=== PATIENT | female | born 1960 | race Caucasian/White ===

== ENCOUNTER → 2017-05-20 | Outpatient (CLI) | payer MEDICARE ==
--- NOTE | 2017-05-20 09:25 | CT ---
EXAMINATION TYPE: CT shoulder LT wo con DATE OF EXAM: 05/20/2017 COMPARISON: Plain films of the shoulder dated 10/23/2016. HISTORY: Osteoarthritis TECHNIQUE: Helical acquisition through the region of the left shoulder was obtained without intraveno us contrast. The data was reformatted in axial, coronal and sagittal projections. Three-dimensional v olume rendered imaging was also performed at the CT scanner. CT DLP: 257.4 mGycm Automated exposure control for dose reduction was used. FINDINGS: Visualized portions of the lungs are clear. There is some shotty axillary adenopathy. No pathologically enlarged lymph nodes are seen. Musculature about the shoulder is unremarkable. There are remodeling changes in the glenohumeral joint. There are hypertrophic and pseudocystic pritchard es in the acromioclavicular joint. No acute osseous lesion is seen. There is no complete rotator cuff tear. I cannot exclude other rotator cuff pathology. IMPRESSION: 1. FINDINGS COMPATIBLE WITH OSTEOARTHRITIS. 2. HYPERTROPHIC CHANGES, LEFT AC JOINT. 3. I DO NOT SEE EVIDENCE FOR ROTATOR CUFF DISEASE. FOR MORE DETAILED ASSESSMENT OF THE ROTATOR CUFF M RI OF THE SHOULDER WOULD BE RECOMMENDED.
== END | disposition home or self-care (01) ==
LOC: RADCTMAIN 08:00
PROVIDERS: ATTEND Orthopaedic Surgery
DX: M25.812 Other specified joint disorders, left shoulder (principal)

== ENCOUNTER → 2017-11-03 | Outpatient (CLI) | payer MEDICARE ==
--- NOTE | 2017-11-04 09:48 | MM ---
Reason for exam: screening (asymptomatic). Last mammogram was performed 1 year and 1 month ago. History: Patient is postmenopausal and history of other cancer. Physical Findings: A clinical breast exam by your physician is recommended on an annual basis and results should be correlated with mammographic findings. MG 3D Screening Mammo W/Cad Bilateral CC and MLO view(s) were taken. Prior study comparison: October 17, 2016, mammogram, performed at [facility]. October 12, 2015, mammogram, performed at [facility]. There are scattered fibroglandular densities. No significant changes when compared with prior studies. ASSESSMENT: Benign, BI-RAD 2 RECOMMENDATION: Routine screening mammogram of both breasts in 1 year.
== END | disposition home or self-care (01) ==
LOC: RADMAMWWP 11:07
PROVIDERS: ATTEND Internal Medicine
DX: Z12.31 Encounter for screening mammogram for malignant neoplasm of breast (principal)
CPT/HCPCS: 77063; 77067

== ENCOUNTER → 2018-11-24 | Outpatient (CLI) | payer MEDICARE ==
--- NOTE | 2018-11-28 13:43 | MM ---
Reason for exam: screening (asymptomatic). Last mammogram was performed 1 year and 1 month ago. History: Patient is postmenopausal and history of other cancer. MG 3D Screening Mammo W/Cad Bilateral CC and MLO view(s) were taken. Prior study comparison: November 03, 2017, bilateral MG 3d screening mammo w/cad. October 17, 2016, mammogram, performed at [facility]. The breast tissue is heterogeneously dense. This may lower the sensitivity of mammography. No suspicious abnormality. No significant changes when compared with prior studies. ASSESSMENT: Negative, BI-RAD 1 RECOMMENDATION: Routine screening mammogram of both breasts in 1 year.
== END | disposition home or self-care (01) ==
LOC: RADMAMWWP 07:51
PROVIDERS: ATTEND Internal Medicine
DX: Z12.31 Encounter for screening mammogram for malignant neoplasm of breast (principal)
CPT/HCPCS: 77063; 77067

== ENCOUNTER → 2019-05-11 | Outpatient (CLI) | payer MEDICARE ==
--- NOTE | 2019-05-11 13:46 | MR ---
EXAMINATION TYPE: MR lumbar spine wo con DATE OF EXAM: 05/11/2019 COMPARISON: 10/23/2016 HISTORY: Lumbar pain TECHNIQUE: Multiplanar, multisequence images of the lumbar spine were acquired. FINDINGS: There is a very minimal dextroscoliosis of the thoracolumbar junction on the localizer imag es. The lumbar spine vertebral bodies maintain normal vertebral body heights and alignment. Bone sophia ow signal is within normal limits. Schmorl's node is seen in the inferior endplate of T12. Conus medu llaris is unremarkable terminating at L2. Altered level disc desiccation. L1-L2: No significant disc disease, spinal canal stenosis nor neural foraminal narrowing. L2-L3: There is a right eccentric disc bulge that has occurred in the interim creating mild right pedro ral foraminal narrowing. Left neural foramen and spinal canal are patent. L3-L4: There is a small broad-based disc bulge and mild facet arthropathy without spinal canal stenos is or significant neural foraminal narrowing. L4-L5: There is a broad-based disc bulge and facet arthropathy with left lateral annular tear. Disc b ulge is left eccentric with no significant neural foraminal narrowing or spinal canal stenosis. L5-S1: There is a broad-based disc bulge and facet arthropathy without spinal canal stenosis or neura l foraminal narrowing. There is a left paracentral annular tear noted. This was seen on the prior. IMPRESSION: Mildly progressed multilevel degenerative disc disease in comparison to the prior of 10/27/2016 with left eccentric disc bulge at L4-L5, right eccentric disc bulge at L2-L3, and broad-based disc bulges from L2 through S1. No spinal canal stenosis. Mild right neural foraminal narrowing at L2-L3 is now s een. Multilevel annular tears.
== END | disposition home or self-care (01) ==
LOC: RADMRIMAIN 12:02
PROVIDERS: ATTEND Psychiatry & Neurology Neurology
DX: M48.061 Spinal stenosis, lumbar region without neurogenic claudication (principal); M51.26 Other intervertebral disc displacement, lumbar region; M51.37 Other intervertebral disc degeneration, lumbosacral region; M51.86 Other intervertebral disc disorders, lumbar region; M51.87 Other intervertebral disc disorders, lumbosacral region
CPT/HCPCS: 72148

== ENCOUNTER → 2019-07-27 | Outpatient (CLI) | payer MEDICARE ==
--- NOTE | 2019-07-27 09:16 | US ---
EXAMINATION TYPE: US abdomen complete DATE OF EXAM: 07/27/2019 COMPARISON: NONE CLINICAL HISTORY: R10.11 Right upper quadrant pain. Intermittent epigastric and RUQ pain x 5 months, 1 episode of nausea EXAM MEASUREMENTS: Liver Length: 16.4 cm Gallbladder Wall: 0.2 cm CBD: 0.5 cm Spleen: 10.1 cm Right Kidney: 10.5 x 4.0 x 4.1 cm Left Kidney: 10.6 x 5.3 x 4.9 cm Pancreas: visualized portions wnl, limited by overlying midline bowel gas Liver: wnl Gallbladder: wnl Evidence for sonographic Pop's sign: yes CBD: visualized portions wnl, limited by overlying bowel gas Spleen: wnl Right Kidney: wnl Left Kidney: wnl Upper IVC: wnl Abd Aorta: wnl There is no ascites. IMPRESSION: Exam somewhat limited. No significant abnormality evident.
== END ==
LOC: RADUSWWP 06:58
PROVIDERS: ATTEND Internal Medicine
DX: R10.11 Right upper quadrant pain (principal)
CPT/HCPCS: 76700

== ENCOUNTER → 2019-08-02 | Outpatient (CLI) | payer MEDICARE ==
--- NOTE | 2019-08-03 07:59 | NM ---
EXAMINATION TYPE: NM hepatobiliary w EF DATE OF EXAM: 08/02/2019 COMPARISON: NONE HISTORY: R10.11 right upper quadrant abdominal pain TECHNIQUE: After the intravenous administration of 4.5 mCi Tc 99m Mebrofenin hepatobiliary scintigrap hy is performed. Immediate images post injection. FINDINGS: There is satisfactory initial accumulation of tracer by the liver. The gallbladder is visualized wit hin 28 minutes. The small bowel activity is noted within 20 minutes. At one hour 8 ounces of oral e nsure plus is given to mimic CCK and gallbladder ejection fraction is calculated at 97%. IMPRESSION: Increased ejection fraction suggests hypercontractile state.
== END | disposition home or self-care (01) ==
LOC: RADNMMAIN 14:49
PROVIDERS: ATTEND Internal Medicine
DX: R93.5 Abnormal findings on diagnostic imaging of other abdominal regions, including retroperitoneum (principal); R10.11 Right upper quadrant pain
CPT/HCPCS: 78226; A9537

== ENCOUNTER → 2019-12-05 | Outpatient (CLI) | payer MEDICARE ==
--- NOTE | 2019-12-06 11:16 | MM ---
Reason for exam: screening (asymptomatic). Last mammogram was performed 1 year ago. History: Patient is postmenopausal and history of other cancer. Physical Findings: A clinical breast exam by your physician is recommended on an annual basis and results should be correlated with mammographic findings. MG 3D Screening Mammo W/Cad Bilateral CC and MLO view(s) were taken. Prior study comparison: November 24, 2018, bilateral MG 3d screening mammo w/cad. November 03, 2017, bilateral MG 3d screening mammo w/cad. The breast tissue is heterogeneously dense. This may lower the sensitivity of mammography. There is no discrete abnormality. ASSESSMENT: Negative, BI-RAD 1 RECOMMENDATION: Routine screening mammogram of both breasts in 1 year.
== END | disposition home or self-care (01) ==
LOC: RADMAMWWP 09:30
PROVIDERS: ATTEND Family Medicine
DX: Z12.31 Encounter for screening mammogram for malignant neoplasm of breast (principal); Z80.3 Family history of malignant neoplasm of breast
CPT/HCPCS: 77063; 77067

== ENCOUNTER → 2019-12-16 | Outpatient (CLI) | payer MEDICARE ==
--- NOTE | 2019-12-16 11:47 | CTL ---
EXAMINATION TYPE: CT Low Dose Lung DATE OF EXAM ORDERED: 12/16/2019 HISTORY: 15 cigarettes a day smoker. Lung cancer screening CT DLP: 112.[address] CTDI: 3.6 mGy Automated exposure control for dose reduction was used. SCREENING VISIT: Initial COMPARISON: None TECHNIQUE: Low dose computed tomography scan was performed through the chest at 1 mm thick sections a nd reconstructed images in the coronal plane at [address] DIAGNOSTIC QUALITY: Satisfactory FINDINGS: LUNG NODULES: None. LUNGS: COPD: Severity: Minimal, chronic bronchitis. Fibrosis: Severity: None Lymph nodes: No enlarged mediastinal lymph nodes Other findings: None RIGHT PLEURAL SPACE: Effusion: None Calcification: None Thickening: None Pneumothorax: None LEFT PLEURAL SPACE: Effusion: None Calcification: None Thickening: None Pneumothorax: None HEART: Heart Size: Normal Coronary calcification: No significant Pericardial effusion: None OTHER FINDINGS: Upper abdomen: Normal Bony thorax: Normal Supraclavicular region: Normal Other: Ascending thoracic aorta at the level the main pulmonary artery measures 3.0 cm. The main pul monary artery at the bifurcation measures 2.2 cm. IMPRESSION: 1. No suspicious changes screening CT chest FOLLOW UP CT CHEST RECOMMENDATION: 1. Follow-up low dose screening CT chest 1 year. 2[address] Smoking sensation. CT LUNG RAD: 1
== END | disposition home or self-care (01) ==
LOC: RADCTMAIN 07:46
PROVIDERS: ATTEND Family Medicine
DX: Z12.2 Encounter for screening for malignant neoplasm of respiratory organs (principal); F17.210 Nicotine dependence, cigarettes, uncomplicated

== ENCOUNTER → 2020-11-29 | Outpatient (CLI) | payer MEDICARE ==
[2020-11-29 10:17] LABS: Basophils # (A) 0.1 k/uL (0-0.2); Basophils % (A) 1 %; Eosinophils # (A) 0.2 k/uL (0-0.7); Eosinophils % (A) 3 %; HCT 42.9 % (34.0-46.0); HGB 14.3 gm/dL (11.4-16.0); Lymphocytes # (A) 2.3 k/uL (1.0-4.8); Lymphocytes % (A) 35 %; MCH 28.2 pg (25.0-35.0); MCHC 33.4 g/dL (31.0-37.0); MCV 84.4 fL (80.0-100.0); Mean Platelet Volume 6.5; Monocytes # (A) 0.3 k/uL (0-1.0); Monocytes % (A) 5 %; Neutrophils # (A) 3.6 k/uL (1.3-7.7); Neutrophils % (A) 54 %; Platelet Count 284 k/uL (150-450); RBC 5.08 m/uL (3.80-5.40); RDW 12.6 % (11.5-15.5); WBC 6.7 k/uL (3.8-10.6)
[2020-11-29 10:37] LABS: ALT 33 U/L (4-34); AST 36 U/L (14-36); African American GFR (CKD) >90 (>60 ml/min/1.73 sqM); Albumin 4.3 g/dL (3.5-5.0); Alkaline Phosphatase 40 U/L (38-126); Anion Gap 4 mmol/L; Blood Urea Nitrogen 11 mg/dL (7-17); Calcium 9.2 mg/dL (8.4-10.2); Carbon Dioxide 31 mmol/L (22-30); Chloride 104 mmol/L (98-107); Glucose 105 mg/dL (74-99); Non-African American GFR(CKD) >90 (>60 ml/min/1.73 sqM); Potassium 4.6 mmol/L (3.5-5.1); Sodium 139 mmol/L (137-145); Total Bilirubin 0.5 mg/dL (0.2-1.3); Total Protein 6.7 g/dL (6.3-8.2)
--- NOTE | 2020-11-29 13:36 | MR ---
EXAMINATION TYPE: MR brain wo/w con DATE OF EXAM: 11/29/2020 COMPARISON: None available HISTORY: Headaches, unusual duration. Muscle spasms TECHNIQUE: Multiplanar, multisequence images of the brain and brainstem is performed without and with IV contras t, utilizing 7 mL intravenous Gadavist . FINDINGS: Diffusion weighted images demonstrate no evidence of a recent infarct or other diffusion ab normality. There is no extra-axial fluid collection. Some periventricular hyperintensities are pres ent on inversion recovery T2-weighted sequences, 2 dominant lesions are present, largest in the left frontal deep white matter measures 8 mm on axial image 23, sagittal image #9, right frontal white mat ter hyperintensity measures 5 mm on axial image #19, sagittal image #16. Approximately 3-5 lesions pr esent. The ventricular system and cisternal spaces are normal in size and appearance. The brain volu me is age appropriate. Midline structures demonstrate normal morphology. The craniocervical junction appears within normal limits. Post contrast images demonstrate no abnormal enhancement. The dural venous sinuses appear pa tent. The visualized sinuses are focal mucoperiosteal thickening in the maxillary sinus, ethmoid air cells and the globes are intact. IMPRESSION: Nonspecific white matter demyelination. Mild sinus disease.
== END | disposition home or self-care (01) ==
LOC: RADMRIMAIN 09:00
PROVIDERS: ATTEND Psychiatry & Neurology Neurology
DX: R90.82 White matter disease, unspecified (principal); E55.9 Vitamin D deficiency, unspecified; Z51.81 Encounter for therapeutic drug level monitoring
CPT/HCPCS: 80053; 85025; 82306; 70553; 36415; A9585

== ENCOUNTER → 2020-12-14 | Outpatient (CLI) | payer MEDICARE ==
--- NOTE | 2020-12-18 12:24 | MM ---
Reason for exam: screening (asymptomatic). Last mammogram was performed 1 year ago. History: Patient is postmenopausal and history of other cancer. Took hormonal contraceptives for 10 years. Took estrogen for 1 year. Physical Findings: A clinical breast exam by your physician is recommended on an annual basis and results should be correlated with mammographic findings. MG 3D Screening Mammo W/Cad Bilateral CC and MLO view(s) were taken. Prior study comparison: December 05, 2019, bilateral MG 3d screening mammo w/cad. November 24, 2018, bilateral MG 3d screening mammo w/cad. There are scattered fibroglandular densities. No significant changes when compared with prior studies. ASSESSMENT: Benign, BI-RAD 2 RECOMMENDATION: Routine screening mammogram of both breasts in 1 year.
== END | disposition home or self-care (01) ==
LOC: RADMAMWWP 07:56
PROVIDERS: ATTEND Family Medicine
DX: Z12.31 Encounter for screening mammogram for malignant neoplasm of breast (principal)
CPT/HCPCS: 77063; 77067

== ENCOUNTER → 2020-12-14 | Outpatient (CLI) | payer MEDICARE ==
--- NOTE | 2020-12-14 09:42 | CTL ---
EXAMINATION TYPE: CT Low Dose Lung DATE OF EXAM ORDERED: 12/14/2020 HISTORY: Routine dependence. Lung cancer screening CT DLP: 104.[address] CTDI: 3.3 mGy Automated exposure control for dose reduction was used. SCREENING VISIT: Follow-up COMPARISON: 12/16/2019 TECHNIQUE: Low dose computed tomography scan was performed through the chest at 1 mm thick sections a nd reconstructed images in the coronal plane at [address] DIAGNOSTIC QUALITY: Satisfactory FINDINGS: LUNG NODULES: None.. LUNGS: COPD: Severity: None Fibrosis: Severity: None Lymph nodes: None Other findings: None RIGHT PLEURAL SPACE: Effusion: None Calcification: None Thickening: None Pneumothorax: None LEFT PLEURAL SPACE: Effusion: None Calcification: None Thickening: None Pneumothorax: None HEART: Heart Size: Normal Coronary calcification: None Pericardial effusion: None OTHER FINDINGS: Upper abdomen: Normal Bony thorax: Normal Supraclavicular region: Normal Other: Ascending thoracic aorta at the level the main pulmonary artery measures 3.0 cm. The main pul monary artery at the bifurcation measures 2.7 cm. IMPRESSION: 1. No suspicious changes screening low-dose CT chest FOLLOW UP CT CHEST RECOMMENDATION: 1. Follow-up low-dose CT chest 1 year 2[address] Smoking cessation. CT LUNG RAD: 1
== END | disposition home or self-care (01) ==
LOC: RADCTMAIN 08:19
PROVIDERS: ATTEND Family Medicine
DX: Z12.2 Encounter for screening for malignant neoplasm of respiratory organs (principal); F17.210 Nicotine dependence, cigarettes, uncomplicated
CPT/HCPCS: 71271

== ENCOUNTER → 2020-12-24 | Outpatient (CLI) | payer MEDICARE ==
--- NOTE | 2020-12-26 08:12 | CT ---
EXAMINATION TYPE: CT pelvis w con DATE OF EXAM: 12/24/2020 COMPARISON: NONE HISTORY: 59-year-old female N83.292, ovarian cyst, pelvic pain and vaginal bleeding TECHNIQUE: Contiguous axial scanning of the pelvis following administration of 100 ml Isovue 300 IV c ontrast. Delayed images through the bladder and coronal/sagittal reconstructions performed. CT DLP: 547.6 mGycm Automated exposure control for dose reduction was used. FINDINGS: Moderate scattered stool is noted. Normal appendix. In the visualized colon, no pericolic inflammator y change. No lower abdominal/retroperitoneal or pelvic lymphadenopathy identified. No abnormal fluid collection seen in the pelvis. Scattered pelvic lymph nodes. Uterus surgically absent. Both ovaries are visualized. There is either a mildly complex, septated cyst versus 2 adjacent cysts with aggregate dimension of 3 .8 cm AP by 2.3 cm wide by 2.3 cm craniocaudal, refer to axial image 25 and sagittal image 40. Bones: Mild degenerative spurring of both hips. Facet arthropathy lower lumbar spine. IMPRESSION: 1. EITHER A MILDLY COMPLEX SEPTATED CYST VERSUS 2 ADJACENT CYSTS WITHIN THE LEFT OVARY MEASURING UP T O 3.8 X 2.3 X 2.3 CM. GIVEN POSTMENOPAUSAL STATUS, RECOMMEND FOLLOW-UP ULTRASOUND IN THE 3-6 MONTHS T O REASSESS, FURTHER CHARACTERIZE, AND TO DETERMINE SUBSEQUENT FOLLOW-UP RECOMMENDATIONS. A CYSTIC EPI THELIAL OVARIAN NEOPLASM IS NOT EXCLUDED AT THIS TIME. 2. STATUS POST HYSTERECTOMY. 3. MODERATE STOOL BURDEN.
== END | disposition home or self-care (01) ==
LOC: RADCTMAIN 13:37
PROVIDERS: ATTEND Family Medicine
DX: Z78.0 Asymptomatic menopausal state (principal); Z98.890 Other specified postprocedural states; N83.292 Other ovarian cyst, left side
CPT/HCPCS: 72193; Q9967

== ENCOUNTER → 2021-02-14 | Outpatient (CLI) | payer MEDICARE ==
--- NOTE | 2021-02-14 10:46 | MR ---
EXAMINATION TYPE: MR cervical spine wo con DATE OF EXAM: 02/14/2021 COMPARISON: Cervical spine MRI 06/16/2016 HISTORY: Neck pain, bilateral arm numbness TECHNIQUE: Multiplanar, multisequence images of the cervical spine were acquired. C2-C3: No evidence for degenerative disc disease. No disc bulge/herniation or protrusion. No Canal stenosis. Foramina are patent bilaterally. C3-C4: There is some left-sided foraminal encroachment due to uncovertebral joint hypertrophy, director digital marketing ior extension of broad-based disc bulge, endplate disc complex causes minimal anterior mass effect on the thecal sac, no significant stenosis C4-C5: Posterior extension endplate disc complex causes mild anterior mass effect on the thecal sac, only mild stenosis, there is foraminal encroachment right greater than left due to uncovertebral join t hypertrophy, facet arthropathy. C5-C6: Posterior extension of endplate disc complex causes mild anterior mass effect thecal sac, mild central stenosis. There is some left-sided foraminal encroachment due to uncovertebral joint hypertr ophy and facet arthropathy change. C6-C7: Posterior extension endplate disc complex somewhat eccentric towards the left, there is anteri or mass effect on the thecal sac. Some mild right-sided foraminal encroachment, no significant spinal stenosis. C7-T1: Small posterior disc herniation causes minimal anterior mass effect on the thecal sac. No sign ificant spinal stenosis or foraminal encroachment. Cervical segments are intact. There is normal alignment. Cervical spinal cord is of normal signal. Craniovertebral junction relationships are within normal limits. Cervical vertebral bodies show pre served height, there is multilevel spondylosis, endplate discogenic marrow signal change, loss of dis c height and signal especially at C3-4, C4-5 and C5-6 and C6-7. There is a spinal curvature in the th oracic and cervical spine. IMPRESSION: Two-level degenerative disc disease, foraminal encroachment, findings similar to prior exam. Spinal c urvature.
== END | disposition home or self-care (01) ==
LOC: RADMRIMAIN 08:32
PROVIDERS: ATTEND Psychiatry & Neurology Neurology
DX: M50.30 Other cervical disc degeneration, unspecified cervical region (principal)
CPT/HCPCS: 72141

== ENCOUNTER → 2022-01-13 | Outpatient (CLI) | payer MEDICARE ==
--- NOTE | 2022-01-14 19:40 | BD ---
EXAMINATION TYPE: Axial Bone Density DATE OF EXAM: 01/13/2022 COMPARISON: 06/24/2005 CLINICAL HISTORY: Postmenopausal screening Height: 60 IN Weight: 156 LBS FRAX RISK QUESTIONS: Secondary Osteoporosis: 3. Menopause before 45: PARTIAL HYST AGE 26 Current Tobacco Use: YES RISK FACTORS HISTORY OF: History of Wrist Fracture: LT WRIST AGE 32 Active: YES Postmenopausal woman: PARTIAL HYST AGE 26 MEDICATIONS: Osteoporosis Medications: YES Which medication: Fosamax How Lon YEARS Additional Medications: CALCIUM, VIT D, FOSAMAX, ATENOLOL, AMLODIPINE, MS CONTIN, PERCOCET, ASPIRIN, MAGNESIUM, ZINC, VIT C, TERMERIC, ELITE OMEGA, RED YEAST RICE, EXAM MEASUREMENTS: Bone mineral densitometry was performed using the [employer] System. Bone mineral density as measured about the Lumbar spine is: ----- L1-L4(G/cm2): 1.218 T Score Values are as follows: ----- L2: 0.2 ----- L3: 1.2 ----- L4: 0.1 ----- L1-L4: 0.3 Bone mineral density has: Increased 11.7% since study of: 06/24/2005 Bone mineral density about the R hip (g/cm2): 0.945 Bone mineral density about the L hip (g/cm2): 1.003 T Score values are as follows: -----R Neck: -0.7 -----L Neck: -0.2 -----R Total: -0.6 -----L Total: 0.1 Bone mineral density has: Increased 9.9% since study of: 06/24/2005 IMPRESSION: Normal (Values between +1 and -1 indicate normal bone mass). Consider repeating this study in 5 year s or sooner if there is some new clinical indication. NOTE: T-SCORE=SD OF THE YOUNG ADULT MEAN.
== END | disposition home or self-care (01) ==
LOC: RADBDWWP 16:06
PROVIDERS: ATTEND Family Medicine
DX: Z78.0 Asymptomatic menopausal state (principal)
CPT/HCPCS: 77080

== ENCOUNTER → 2022-04-17 | Outpatient (CLI) | payer MEDICARE ==
--- NOTE | 2022-04-18 09:02 | CA ---
Transthoracic Echo Report Name: Madeline Winn Age: 61 Gender: F : 1960 Exam Date: 04/17/2022 14:44 Exam Location: [facility] Ht (in): 60 Wt (lb): 160 Ordering Physician: Tayo Pandey MD Attending/Referring Phys: Marie [facility] Panel Assembler Veena Gilmore RDCS Procedure CPT: Indications: R94.31 Cardiac Hx: Technical Quality: Fair Contrast 1: Total Dose (mL): Contrast 2: Total Dose (mL): MEASUREMENTS (Male / Female) Normal Values 2D ECHO LV Diastolic Diameter PLAX 4.1 cm 4.2 - 5.9 / 3.9 - 5.3 cm LV Systolic Diameter PLAX 2.0 cm IVS Diastolic Thickness 1.1 cm 0.6 - 1.0 / 0.6 - 0.9 cm LVPW Diastolic Thickness 1.3 cm 0.6 - 1.0 / 0.6 - 0.9 cm LV Relative Wall Thickness 0.6 RV Internal Dim ED PLAX 2.9 cm M-MODE Aortic Root Diameter MM 2.6 cm LA Systolic Diameter MM 3.5 cm LA Ao Ratio MM 1.4 AV Cusp Separation MM 2.0 cm DOPPLER AV Peak Velocity 171.8 cm/s AV Peak Gradient 11.8 mmHg AV Mean Velocity 117.4 cm/s AV Mean Gradient 5.7 mmHg AV Velocity Time Integral 42.8 cm LVOT Peak Velocity 153.9 cm/s LVOT Peak Gradient 9.5 mmHg MV Area PHT 4.3 cm??? Mitral E Point Velocity 69.1 cm/s Mitral A Point Velocity 62.1 cm/s Mitral E to A Ratio 1.1 MV Deceleration Time 175.6 ms MV E' Velocity 10.2 cm/s Mitral E to MV E' Ratio 6.8 TR Peak Velocity 251.1 cm/s TR Peak Gradient 25.2 mmHg Right Ventricular Systolic Press 29.1 mmHg FINDINGS Left Ventricle Mildly increased left ventricular wall thickness. Normal left ventricular systolic function with no obvious regional wall motion abnormalities. Normal left ventricular diastolic filling pattern. Left ventricular ejection fraction is estimated at 55-60 %. Right Ventricle Normal right ventricular size and function. Right ventricular systolic pressure within normal limits. Right Atrium Normal right atrial size. Left Atrium Normal left atrial size. No evidence for an atrial septal defect. Mitral Valve Structurally normal mitral valve. Mild mitral regurgitation. Aortic Valve No aortic valve stenosis or regurgitation. Tricuspid Valve Structurally normal tricuspid valve. Mild tricuspid regurgitation. Pulmonic Valve Trace pulmonic regurgitation. Pericardium No pericardial effusion. Aorta Normal size aortic root and proximal ascending aorta. CONCLUSIONS Normal LV size and systolic function. Mild mitral and tricuspid insufficiency. No pericardial effusion Previewed by: Dr. Raven Cullen MD (Electronically Signed) Final Date: 18 April 2022 09:01
== END | disposition home or self-care (01) ==
LOC: RADECHMAIN 14:36
PROVIDERS: ATTEND Family Medicine
DX: I08.1 Rheumatic disorders of both mitral and tricuspid valves (principal)
CPT/HCPCS: 93306

== ENCOUNTER → 2022-05-03 | Outpatient (CLI) | payer MEDICARE ==
--- NOTE | 2022-05-03 10:48 | MR ---
EXAMINATION TYPE: MR lumbar spine wo con DATE OF EXAM: 05/03/2022 COMPARISON: MR lumbar spine 05/11/2019 and 10/23/2016 HISTORY: LOW BACK PAIN, DISTURBANCES OF SKIN SENSATION TECHNIQUE: Multiplanar, multisequence images of the lumbar spine were acquired without IV contrast. FINDINGS: Normal and stable alignment of the visualized spine the cord signal is within normal limits. Conus me dullaris terminates at L1-L2. Minimal endplate changes are seen throughout the spine most pronounced in lower thoracic spine which are not significantly different than prior in 2019. No significant disc desiccation is identified. L1-L2: Normal disc appearance without desiccation. No herniation, protrusion or disc bulging. No ca nal stenosis is present. Foramina are patent bilaterally. L2-L3: Normal disc appearance without desiccation. No herniation, protrusion or disc bulging. No ca nal stenosis is present. Foramina are patent bilaterally. L3-L4: Normal disc appearance without desiccation. No herniation, protrusion or disc bulging. No ca nal stenosis is present. Foramina are patent bilaterally. L4-L5: Facet joint arthropathy and mild disc bulging result in mild left neural foraminal stenosis. S radha canal is patent. L5-S1: Normal disc appearance without desiccation. No herniation, protrusion or disc bulging. No ca nal stenosis is present. Foramina are patent bilaterally. Lumbar segments are intact. No paraspinal masses are identified. Conus medullaris has a normal appe arance. IMPRESSION: 1. Overall no significant change from prior in 2019 without evidence of significant spinal canal pedro ral foraminal stenosis. No definitive evidence of disc herniation identified. 2. Multilevel disc degeneration with associated osteoarthritic changes are not significantly changed there is mild left neural for L5 neural foraminal stenosis secondary to facet joint arthropathy.
== END | disposition home or self-care (01) ==
LOC: RADMRIMAIN 08:23
DX: M51.26 Other intervertebral disc displacement, lumbar region (principal); M47.816 Spondylosis without myelopathy or radiculopathy, lumbar region; M48.061 Spinal stenosis, lumbar region without neurogenic claudication; M99.73 Connective tissue and disc stenosis of intervertebral foramina of lumbar region
CPT/HCPCS: 72148

== ENCOUNTER → 2024-04-19 | Outpatient (CLI) | payer MEDICARE | END | disposition home or self-care (01) | LOC: LABWHC1 10:37 | PROVIDERS: ATTEND Family Medicine | DX: Z53.9 Procedure and treatment not carried out, unspecified reason (principal) ==

== ENCOUNTER → 2024-04-20 | Outpatient (CLI) | payer MEDICARE ==
[2024-04-20 15:41] LABS: Calcium 9.3 mg/dL (8.7-10.3); Iron 115 UG/DL (50-170); Magnesium 2.2 mg/dL (1.5-2.4); Rheumatoid Factor, Qnt <15 IU/mL (0-15); T4, Free (Free Thyroxine) 1.27 ng/dL (0.80-1.80); Uric Acid 3.7 mg/dL (2.9-7.7)
[2024-04-20 18:54] LABS: DHEA Sulfate 83.6 UG/DL (39.0-800.0)
[2024-04-22 11:35] LABS: Vit B1(Thiamine) 60 ug/L (38-122)
[2024-04-27 07:07] LABS: Nicotinamide 21 ng/mL; Nicotinic Acid None Detected; Nicotinuric Acid None Detected
== END | disposition home or self-care (01) ==
LOC: LABWHC1 09:04
PROVIDERS: ATTEND Family Medicine
DX: G89.4 Chronic pain syndrome (principal); K59.00 Constipation, unspecified; F34.1 Dysthymic disorder; M81.0 Age-related osteoporosis without current pathological fracture; M79.10 Myalgia, unspecified site; R53.83 Other fatigue; Z77.29 Contact with and (suspected) exposure to other hazardous substances; Z77.118 Contact with and (suspected) exposure to other environmental pollution
CPT/HCPCS: 36415; 82175; 82310; 82533; 82627; 83540; 83655; 83735; 83825; 84207; 84425; 84439; 84481; 84550; 84591; 86038; 86140; 86431

== ENCOUNTER → 2024-10-06 | Outpatient (CLI) | payer MEDICARE ==
--- NOTE | 2024-10-06 13:22 | US ---
EXAMINATION TYPE: US mass soft tissue chest/back DATE OF EXAM: 10/06/2024 COMPARISON: NONE CLINICAL INDICATION: Female, 63 years old with history of M79.89 OTHER SPECIFIED SOFT TISSUE DISORDER S; right side lump TECHNIQUE: Multiple grayscale ultrasound images of the right side at patient's palpable region of ab normality were obtained. FINDINGS/IMPRESSION: Scanned area of concern with no abnormalities seen. No distinct masses or fluid collections identified. [facility], , 10/06/2024 1:20 PM
== END | disposition home or self-care (01) ==
LOC: RADUSWWP 12:17
PROVIDERS: ATTEND Physical Medicine & Rehabilitation Pain Medicine
DX: R07.81 Pleurodynia (principal); M79.89 Other specified soft tissue disorders

== ENCOUNTER → 2025-02-03 | Outpatient (CLI) | payer MEDICARE ==
--- NOTE | 2025-02-03 07:56 | MM ---
Reason for Exam: Screening (asymptomatic). Last mammogram was performed 1 year(s) and 1 month(s) ago. Patient History: Menarche at age 12. First Full-Term at age 21. Hysterectomy at age 25. Postmenopausal. Patient has history of breast feeding. Other cancer, age 55. Estrogen, from age 45 until age 50. Patient used Hormonal Contraceptives for 10 years. Risk Values: Marybeth 5 year model risk: 1.4%. NCI Lifetime model risk: 5.8%. Prior Study Comparison: 11/24/2018 Bilateral Screening Mammogram, [facility]. 12/05/2019 Bilateral Screening Mammogram, [facility]. 12/14/2020 Bilateral Screening Mammogram, [facility]. 12/16/2021 Bilateral Screening Mammogram, [facility]. 01/02/2023 Bilateral MG 3D screening mammo w/cad, [facility]. 01/04/2024 Bilateral MG 3D screening mammo w/cad, [facility]. Tissue Density: The breasts are heterogeneously dense, which may obscure small masses. Findings: Analyzed By CAD. There is no suspicious group of microcalcifications or new suspicious mass in either breast. Overall Assessment: Negative, BI-RAD 1 Management: Screening Mammogram of both breasts in 1 year. . Patient should continue monthly self-breast exams. A clinical breast exam by your physician is recommended on an annual basis. This exam should not preclude additional follow-up of suspicious palpable abnormalities. Note on Marybeth scores and lifetime risk: 1. A Marybeth score greater than 3% is considered moderate risk. If this is the case, consider specialist referral to assess eligibility for a risk reducing agent. 2. If overall lifetime risk for the development of breast cancer is 20% or higher, the patient may qualify for future screening with alternating mammogram and breast MRI. [facility], , 02/03/2025 7:54 AM. Electronically signed and approved by: Mt Mcnulty M.D. Radiologis
--- NOTE | 2025-02-03 14:07 | CTL ---
EXAMINATION TYPE: CT Low Dose Lung DATE OF EXAM: 02/03/2025 8:18 AM COMPARISON: 01/04/2024 CLINICAL INDICATION: Female, 64 years old with history of Z12.2 SCREENING, SCREENING, PT SMOKES 1/2 P K/ DAY X 50 YEARS, History of tobacco use. TECHNIQUE: Low dose computed tomography scan was performed through the chest at 1 mm thick sections a nd reconstructed images in multiple planes at 1 mm and [address] DLP: 114.30 mGycm, CT CTDI: 3.3 mGy, Automated exposure control for dose reduction was used. CT DIAGNOSTIC QUALITY: Satisfactory LUNGS: Nodules: Stable left apical 3.7 mm pulmonary nodule. (Series 3, image 37). Stable right lower lobe calcified g ranuloma. No new or enlarging pulmonary nodules. No evidence of pulmonary fibrosis. Minimal centrilobular emphysematous changes. Lingular atelectasis. AIRWAYS: Unremarkable. LOWER NECK: Grossly unremarkable. LYMPH NODES: No grossly enlarged lymph nodes in the thorax. MEDIASTINUM?AND FABIÁN: Grossly unremarkable. HEART AND VASCULAR STRUCTURES: Grossly unremarkable. PLEURA & PERICARDIUM: Grossly unremarkable. CHEST WALL: Grossly unremarkable. UPPER ABDOMEN: Grossly unremarkable. BONES: No acute osseous abnormality. Left shoulder prosthesis. Mild multilevel degenerative disease. IMPRESSION: 1. Stable left apical 3.7 mm pulmonary nodule. 2. Minimal emphysematous changes. Recommendation: Continue annual low dose lung cancer screening in 12 months. Lung-RADS Category: 2 Recommend smoking cessation (if current smoker), or continuation of smoking cessation (if prior smoke r). Annual screening for lung cancer with low-dose computed tomography is recommended in adults ages 55 to 77 years who have a 30 pack-year smoking history and currently smoke or have quit within the pa st 15 years. Screening should be discontinued once a person has not smoked for 15 years or develops a health problem that substantially limits life expectancy or the ability or willingness to have curat kim lung surgery. [facility], , 02/03/2025 2:05 PM
== END | disposition home or self-care (01) ==
LOC: RADMAMWWP 07:39
PROVIDERS: ATTEND Family Medicine
DX: Z12.31 Encounter for screening mammogram for malignant neoplasm of breast (principal); Z12.2 Encounter for screening for malignant neoplasm of respiratory organs; F17.210 Nicotine dependence, cigarettes, uncomplicated; R92.333 Mammographic heterogeneous density, bilateral breasts; J43.9 Emphysema, unspecified; R91.1 Solitary pulmonary nodule; Z78.0 Asymptomatic menopausal state; Z92.0 Personal history of contraception
CPT/HCPCS: 71271; 77063; 77067

== ENCOUNTER → 2025-04-14 | Outpatient (CLI) | payer MEDICARE ==
--- NOTE | 2025-04-14 13:14 | CT ---
EXAMINATION TYPE: CT abdomen wo/w con DATE OF EXAM: 04/14/2025 COMPARISON: None CLINICAL INDICATION: Female, 64 years old with history of R10.9,R01.1 CARDIAC MURMUR, UNSPECIFIED; PH H, ruq pain TECHNIQUE: Performed with Oral Contrast and without and with IV Contrast, patient injected with 100ml mL of Isov ue 300. CT DLP: [address] CTDI: mGy Automated exposure control for dose reduction was used. FINDINGS: The lung bases are clear. There is surgical absence of the gallbladder. There is no biliary ductal dilatation. There is no focal mass or organomegaly involving the liver, pancreas, spleen or adrenal glands. There is no solid renal mass or hydronephrosis and there is homogeneous contrast enhancement of the r enal parenchyma. The caliber the abdominal aorta is normal is no retroperitoneal adenopathy or hemorr nghia. The bowel loops are normal in caliber and there is no evidence of dilatation or obstruction. No infla mmatory changes are identified in the bowel wall or mesentery. There is no free intraperitoneal air or fluid. The osseous structures and soft tissues are intact. IMPRESSION: No significant abnormality seen. [facility], , 04/14/2025 1:12 PM
== END | disposition home or self-care (01) ==
LOC: RADCTMAIN 10:23
PROVIDERS: ATTEND Pediatrics
DX: R10.9 Unspecified abdominal pain (principal)
CPT/HCPCS: 74170; Q9967

== ENCOUNTER → 2025-05-31 | Outpatient (CLI) | payer MEDICARE ==
--- NOTE | 2025-05-31 15:56 | XR ---
EXAMINATION TYPE: XR ribs RT w pa chest xray DATE OF EXAM: 05/31/2025 3:47 PM COMPARISON: None. CLINICAL INDICATION: Female, 64 years old with history of R07.81, TECHNIQUE: Single view of the chest 4 views of the ribs are submitted. FINDINGS: The lungs are clear. No Evidence for pneumothorax. No evidence for focal contusion. Mediastinal st ructures are midline. Evaluation of the ribs fails to demonstrate evidence for displaced rib fractur e or secondary sign of rib fracture. IMPRESSION: Negative study [facility], , 05/31/2025 3:54 PM
--- NOTE | 2025-05-31 19:05 | CA ---
Transthoracic Echo Report Name: Madeline iWnn Age: 64 Gender: F : 1960 Exam Date: 05/31/2025 14:04 Exam Location: [place] [facility] Ht (in): 60 Wt (lb): 155 Ordering Physician: Jared Etienne MD Attending/Referring Phys: Marie Moseley [facility] Shipping Hand Salvador Higuera RDCS Procedure CPT: Indications: I10 R01.1 Cardiac Hx: Technical Quality: Fair Contrast 1: Total Dose (mL): Contrast 2: Total Dose (mL): MEASUREMENTS (Male / Female) Normal Values 2D ECHO LV Diastolic Diameter PLAX 5.0 cm 4.2 - 5.9 / 3.9 - 5.3 cm LV Systolic Diameter PLAX 3.5 cm IVS Diastolic Thickness 1.4 cm 0.6 - 1.0 / 0.6 - 0.9 cm LVPW Diastolic Thickness 1.2 cm 0.6 - 1.0 / 0.6 - 0.9 cm LV Relative Wall Thickness 0.5 LVOT Diameter 1.6 cm Aortic Root Diameter 2.6 cm LA Systolic Diameter LX 3.9 cm 3.0 - 4.0 / 2.7 - 3.8 cm LV Diastolic Volume MOD BP 115.0 cm??? 67 - 155 / 56 - 104 cm??? LV Systolic Volume MOD BP 40.9 cm??? 22 - 58 / 19 - 49 cm??? LV Ejection Fraction MOD BP 64.4 % >= 55 % LV Cardiac Index MOD BP 2493.1 cm???/min???m??? LV Diastolic Volume MOD 4C 104.3 cm??? LV Systolic Volume MOD 4C 38.3 cm??? LV Ejection Fraction MOD 4C 63.3 % LV Cardiac Index MOD 4C 2223.7 cm???/min???m??? LV Diastolic Length 4C 8.7 cm LV Systolic Length 4C 6.7 cm LV Diastolic Volume MOD 2C 118.1 cm??? LV Systolic Volume MOD 2C 41.8 cm??? LV Ejection Fraction MOD 2C 64.6 % LV Cardiac Index MOD 2C 2567.9 cm???/min???m??? LV Diastolic Length 2C 8.0 cm LV Systolic Length 2C 6.4 cm DOPPLER Mitral E Point Velocity 51.9 cm/s Mitral A Point Velocity 69.1 cm/s Mitral E to A Ratio 0.8 MV Deceleration Time 261.6 ms MV E' Velocity 6.2 cm/s Mitral E to MV E' Ratio 8.4 FINDINGS Left Ventricle Left ventricular ejection fraction is estimated at 55-60 %. No obvious regional wall motion abnormalities. Normal left ventricular systolic function with no obvious regional wall motion abnormalities. Left ventricular cavity size normal. Mildly increased left ventricular wall thickness. Right Ventricle Right ventricular normal function. Unable to estimate the right ventricular systolic pressure.prominent moderator band in right ventricle (normal variant). Right Atrium Normal right atrial size. Left Atrium Normal left atrial size. Mitral Valve Structurally normal mitral valve. No mitral stenosis. mild mitral regurgitation. Aortic Valve Trileaflet aortic valve. Diffuse thickening (sclerosis) of the aortic valve cusps without reduced excursion. No aortic stenosis. No aortic regurgitation. Tricuspid Valve Structurally normal tricuspid valve. No tricuspid stenosis. Mild tricuspid regurgitation. Pulmonic Valve Structurally normal pulmonic valve. No pulmonic stenosis. Trace pulmonic regurgitation. Pericardium No pericardial effusion. Aorta Normal size aortic root and proximal ascending aorta. CONCLUSIONS 1. Normal left ventricular size and systolic function 2. Mild mitral and tricuspid regurgitation Previewed by: Dr. Emil Cortes MD (Electronically Signed) Final Date: 31 May 2025 19:04
== END | disposition home or self-care (01) ==
LOC: RADECHMAIN 13:52
PROVIDERS: ATTEND Pediatrics
DX: I08.1 Rheumatic disorders of both mitral and tricuspid valves (principal); I10 Essential (primary) hypertension; R10.9 Unspecified abdominal pain; R01.1 Cardiac murmur, unspecified; R07.81 Pleurodynia
CPT/HCPCS: 93306

== ENCOUNTER → 2025-06-01 | Outpatient (CLI) | payer MEDICARE ==
--- NOTE | 2025-06-01 16:18 | US ---
EXAMINATION TYPE: US mass soft tissue chest/back DATE OF EXAM: 06/01/2025 COMPARISON: 10/06/24 CLINICAL INDICATION: Female, 64 years old with history of R07.81 RIB PAIN RT SIDE; Pain and lump on r ight side x years TECHNIQUE: Area of concern scanned FINDINGS: No abnormalities seen IMPRESSION: Unremarkable study [facility], , 06/01/2025 4:16 PM
== END | disposition home or self-care (01) ==
LOC: RADUSWWP 15:43
PROVIDERS: ATTEND Nurse Practitioner Family
DX: R07.81 Pleurodynia (principal)